=== PATIENT | female | born 1985 | race African-American/Black ===

== ENCOUNTER 2017-10-13 19:48 | Emergency (ER) | payer OTHER ==
[~2017-10-13] VITALS: Ht 165.1 cm; Wt 53.1 kg
[~2017-10-13 19:48] MED LIST: COLACE100 MG PO
[2017-10-13 19:56] VITALS: BP 115/80
[2017-10-13] MEDS ORDERED: L-THEANINE25 GM PO (20:08)
[2017-10-13] MEDS ORDERED: MOBIC7.5 MG PO (20:09)
[2017-10-13] MEDS ORDERED: AMOXICILLIN 50500 MG PO (20:10)
== END 2017-10-13 20:22 | disposition home or self-care (01) ==
LOC: ER 19:48
DX: J02.9 Acute pharyngitis, unspecified (principal)

== ENCOUNTER 2018-09-30 09:56 | Emergency (ER) | payer OTHER ==
[~2018-09-30] VITALS: Ht 165.1 cm; Wt 52.6 kg
[~2018-09-30 09:56] MED LIST changes: +AMOXICILLIN 50500 MG PO; +L-THEANINE25 GM PO; +MOBIC7.5 MG PO
[2018-09-30] MEDS ORDERED: HYDROXYZINE HCL25 M1 PO (10:19)
[2018-09-30 10:34] VITALS: BP 111/79
== END 2018-09-30 10:36 | disposition home or self-care (01) ==
LOC: ER 09:56
DX: B35.4 Tinea corporis (principal); Z88.6 Allergy status to analgesic agent; Z77.22 Contact with and (suspected) exposure to environmental tobacco smoke (acute) (chronic)

== ENCOUNTER 2018-10-09 18:38 | Emergency (ER) | payer OTHER ==
[~2018-10-09] VITALS: Ht 165.1 cm; Wt 53.5 kg
[~2018-10-09 18:38] MED LIST changes: +HYDROXYZINE HCL25 M1 PO
[2018-10-09 18:42] VITALS: BP 126/81
== END 2018-10-09 20:00 | disposition home or self-care (01) ==
LOC: ER 18:38
DX: B35.4 Tinea corporis (principal); F17.210 Nicotine dependence, cigarettes, uncomplicated; Z88.6 Allergy status to analgesic agent